=== PATIENT | male | born 2000 | race Caucasian/White ===

== ENCOUNTER → 2020-10-06 17:26 | Outpatient (CLI) | payer BC, SELFPAY | PROVIDERS: PCP Physician Assistant; Referring Provider Otolaryngology; Visit Provider Otolaryngology | DX: U07.1 COVID-19 (principal) | CPT/HCPCS: 87635; C9803; U0005; U0003 ==

== ENCOUNTER → 2020-11-18 17:06 | Outpatient (CLI) | payer BC, SELFPAY | PROVIDERS: PCP Physician Assistant; Referring Provider Otolaryngology; Visit Provider Otolaryngology | DX: U07.1 COVID-19 (principal) | CPT/HCPCS: 87635; C9803; U0002; U0003 ==

== ENCOUNTER → 2020-11-22 | Outpatient (CLI) | payer BC, SELFPAY ==
--- NOTE | 2020-11-22 09:10 | TONS_PTH ---
PATIENT: BRITTANY YBARRA LOC: [facility] U#:[id number] AGE/SX: 20/M ROOM: RE11/22/[address]: Dr. Tk Henson MD : 2000 BED: DIS: 11/22/2020 SPEC #: [id number] RECD: 11/22/20 15:00 STATUS: ANGEL SHELDON #: [id number] CHELI: 11/22/20 09:[address]: Tk Henson DEPT: SURGICAL PATHOLOGY RECD BY: April Waldrop ENTERED: 11/23/20 07:48 SP TYPE: TONSILS OTHR DR: JADE Matthews [facility] [place] Tissues: Tonsil, NOS Procedures: Surgery Specimen Level III HEADER OPERATION: Tonsillectomy PRE-OP DIAGNOSIS: Chronic tonsillitis, hypertrophy of tonsils TISSUE SUBMITTED: Tonsils (right pinned) MICROSCOPIC DIAGNOSIS Bilateral tonsils, tonsillectomy: Reactive lymphoid hyperplasia, consistent with chronic tonsillitis. SJ:jairo 11/24/2020 MICROSCOPIC DESCRIPTION Slides are reviewed. GROSS DESCRIPTION Received is one container labeled with the patient's name and designated tonsils - pin on right are two tonsils that in aggregate weigh 18.4 gm. The right tonsil has a pin on it and measures 4 x 2.5 x 2 cm. The left tonsil measures 3.5 x 2.5 x 1.5 cm. Both tonsils are similar in appearance. The external surfaces are pink-cabrera, smooth, glistening and somewhat lobulated. Focally they are hemorrhagic, granular and bear cautery artifact. Serial cross sections through the tonsils reveal normal tonsillar architecture. Sections are submitted in two cassettes as follows: 1 - right tonsil, 2 - left tonsil. / Anish 11/23/20 TC:3 CPT: 41173 x2
== END | disposition home or self-care (01) ==
LOC: LABSPEC 15:16
PROVIDERS: PCP Physician Assistant; Visit Provider Otolaryngology
DX: J35.01 Chronic tonsillitis (principal)
CPT/HCPCS: 88304